=== PATIENT | male | born 1980 | race Caucasian/White ===

== ENCOUNTER 2017-09-28 09:01 | Emergency (ER) | payer MEDICARE, OTHER ==
[2017-09-28] MEDS: ACETAMINOPHEN 500 MG TAB PO (11:53)
== END 2017-09-28 12:14 | disposition home or self-care (01) ==
LOC: FTE 09:01
DX: M25.571 Pain in right ankle and joints of right foot (principal); L97.401 Non-pressure chronic ulcer of unspecified heel and midfoot limited to breakdown of skin; I12.0 Hypertensive chronic kidney disease with stage 5 chronic kidney disease or end stage renal disease; N18.6 End stage renal disease; E11.22 Type 2 diabetes mellitus with diabetic chronic kidney disease; Z99.2 Dependence on renal dialysis
CPT/HCPCS: 73610; 73610-RT; 99283-25

== ENCOUNTER 2017-11-03 11:37 | Emergency (ER) | payer MEDICARE, OTHER ==
[2017-11-03] MEDS: METHYLPREDNISOLONE 125 MG INJ IV (12:22)
[2017-11-03 12:23] LABS: ADD MAN DIFF? NO
[2017-11-03 12:26] LABS: WHITE BLOOD COUNT 8.8 10^3/ul (4.8-10.8)
[2017-11-03 12:26] LABS: BASOPHILS % 0.2 % (0.0-2.0); EOSINOPHILS # 0.3 10^3/ul (0.0-0.5); EOSINOPHILS % 2.9 % (0.0-7.0); HEMATOCRIT 34.5 % (42.0-52.0); HEMOGLOBIN 11.8 g/dl (14.0-18.0); LYMPHOCYTES # 1.3 10^3/ul (0.8-2.9); LYMPHOCYTES % 14.6 % (15.0-51.0); MEAN CORPUSCULAR HEMOGLOBIN 32.8 pg (29.0-33.0); MEAN CORPUSCULAR HGB CONC 34.2 g/dl (32.0-37.0); MEAN CORPUSCULAR VOLUME 95.8 fl (82.0-101.0); MEAN PLATELET VOLUME 10.5 fl (7.4-10.4); MONOCYTE # 0.6 10^3/ul (0.3-0.9); MONOCYTES % 7.1 % (0.0-11.0); NEUTROPHIL # 6.6 10^3/ul (1.6-7.5); NEUTROPHILS % 74.7 % (39.0-77.0); PLATELET COUNT 149 10^3/UL (140-415); RED CELL DISTRIBUTION WIDTH 13.3 % (11.5-14.5)
[2017-11-03] MEDS: ALBUTEROL 0.5% (NEB) 2.5 MG/0.5 ML AMP INH (12:27)
[2017-11-03 12:44] LABS: ANION GAP 27 (8-16); BLOOD UREA NITROGEN 78 mg/dl (7-20); CARBON DIOXIDE 28 mmol/L (21-31); CHLORIDE 90 mmol/L (97-110); CREATININE 12.75 mg/dl (0.61-1.24); GLUCOSE 117 mg/dl (70-220); SODIUM 140 mmol/L (135-144)
== END 2017-11-03 14:02 | disposition home or self-care (01) ==
LOC: FTE 11:37 → E/R 14:02
DX: J18.1 Lobar pneumonia, unspecified organism (principal); R40.2252 Coma scale, best verbal response, oriented, at arrival to emergency department; I10 Essential (primary) hypertension; R40.2142 Coma scale, eyes open, spontaneous, at arrival to emergency department; R40.2362 Coma scale, best motor response, obeys commands, at arrival to emergency department; Z79.82 Long term (current) use of aspirin
CPT/HCPCS: 71045; 80048; 85025; 94644; 94664; 96374; 99284-25